=== PATIENT | female | born 2005 | race Caucasian/White ===

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

== ENCOUNTER 2024-07-19 09:00 | Outpatient (RCR) | payer OTHER, MEDICAID, SELFPAY ==
--- NOTE | 2024-06-09 09:55 | HP.PTEVAL_ITS ---
Patient's Visit Information Visit Information Visit Information: DANIEL ROSENTHAL is a 18 year old F referred to Physical Therapy by Kristyn Fuller PA-C with a diagnosis of chronic vertigo. Date of Evaluation: 06/09/24 Physical Therapist: Emil Robin, THOMAST, OCS, CSCS Visit Plan Frequency: 1-2x /Week Duration: 4-6 Weeks Plan: 1-2x/week for 4-6 weeks as helpful for progression of HEP(adaptation and habituation). Currently doing seated VOR H 60 sec 6x/day with pics. Progress adaptation and head movements as needed and MSQ when better. Subjective Subjective: Vertigo type dizzyness for 3-4 years now. All the time but up and down. Feels like unsteadyness and goofy in head. No spinning. These symtpoms are worse with no specific triggers, walking, bending but happens sometimes at night. Sleep is not effected, maybe occasional worse in bed. has had lots of tests, tilt table for POTS was negative, blood work without an obvious result, meds, MRI did not show anything. No neck pain or arm symptoms. Employed as [employer] on feet moving around. Worse at work. Hobbies include photography and it is not a problem with senior picstures . Exercise: just work. Basic ADLS living with mom is not a problem, being in water in shower may make her worse. \Not seen ENT. Objective Objective: VOR Walks into PT I, trasnfers table and chair I without assist, good balance. cervical aROM WFL and without pain or tenderness. UE AROM WFL and strength 4/5 without myotomal problems. - B hallpike trevor testing, - roll test today. Oculomotor: no nystagmus with gaze or head shake but dizzy head shake. - skew eye deviaiton, - ocular tilt, - head thrust. normal pursuit and saccades VOR H is dizzy 6/10 after 60 seconds for 10 seconds. VOR V not bad. Most notable today is deficits with vestibular balance system with head movements and foam stance ec tending posterior, also VOR creating symptoms is noticeable. Balance/Special Test Scores Functional Gait Assessment Score: 28 % Disability: 6.6700 CATSIB Score (Max score 120 seconds): 100 Dizziness Score: 40 Goals Goal 1:: VOR 60 seconds H without symptoms Goal Time Frame: 4-6 Weeks Goal 2:: pt feel 75% better in overall dizzyness and intermittent Goal Time Frame: 4-6 Weeks Goal 3:: FGA score 30/30 Goal Time Frame: 4-6 Weeks Goal 4:: I in appropriate management of condition with HEP Goal Time Frame: 4-6 Weeks Goal 5:: 10 or less DHI Goal Time Frame: 4-6 Weeks Rehabilitation Potential Physical Therapy Diagnosis: constant dizzyness creating misery in life. Rehabilitation Potential: Fair Anticipated Interventions Patient/Client Instruction: Educate patient on: Condition and Plan of Care For the Purpose of:: To increase tolerance to activity/condition/position and To improve gait and locomotor functions Therapeutic Exercise to Include: Balance training Comment: adaptation and habitiuation and balance For the Purpose of:: To increase tolerance to activity/condition/position, To improve gait and locomotor functions and To improve safety Text: Thank you for the opportunity to evaluate your patient. For Medicare and Medicare HMO plans, please review the plan of care and approve it. It will need to be FAXED BACK to us at [phone] for Medicare purposes. For Medicare only, by signing this I certify the plan of care. Please let me know if there are questions or concerns regarding this plan of care. Physician Signature: Date:
--- NOTE | 2024-07-19 09:14 | HP.PTDCSUM ---
Discharge Summary D/C summary: It has been my pleasure to treat DANIEL ROSENTHAL referred by Kristyn Fuller PA-C, with the diagnosis of chronic vertigo for a total of 4 visit(s). Discharge Date: 07/19/24 Please see the following information for a summary of their discharge status. Subjective Subjective: Doing well , just tired. will get hair done today and then go to bed. No dizzyness. No activity modifcation at this point. Worked out without a problem and all head positions no problem. even had flashing lights and dancing around and no problem. Overall Improvement % Improvement: 100 Objective Objective/Function: No positions create symptoms. FGA is perfect and SLS and hopping and jogging up steps without rail is good. Goals Goal 1:: VOR 60 seconds H without symptoms Goal Progress: Goal Met Goal 2:: pt feel 75% better in overall dizzyness and intermittent Goal Progress: Goal Met Goal 3:: FGA score 30/30 Goal Progress: Goal Met Goal 4:: I in appropriate management of condition with HEP Goal Progress: Goal Met Goal 5:: 10 or less DHI Goal Progress: Goal Met Plan Plan: d/c, no HEP required. D/C Information d/c sentence: If there are questions or concerns regarding this patient's physical therapy, please feel free to call me at [phone]. Thank you for the referral of this patient. Sincerely, Emil Robin, DPT, OCS, CSCS Balance/Gait/Functional tests Balance/Special Test Scores Functional Gait Assessment Score: 29 % Disability: 3.3400 CATSIB Score (Max score 120 seconds): 100 Dizziness Score: 0 Improvement % Improvement: 100
== END 2024-07-19 19:00 | disposition home or self-care (01) ==
LOC: PT 09:00
PROVIDERS: PCP Family Medicine; Referring Provider Family Medicine; Visit Provider Family Medicine
DX: R42 Dizziness and giddiness (principal)
CPT/HCPCS: 97161; 97164; 97530